=== PATIENT | male | born 1990 | race Caucasian/White ===

== ENCOUNTER 2022-07-19 13:46 | Observation (INO) ==
[2022-07-19] MEDS ORDERED: MORPHINE 2 MG/1 ML SYRINGE IV STA (13:59)
[2022-07-19] MEDS ORDERED: ONDANSETRON 4 MG/2 ML VIAL IV STA (13:59)
[2022-07-19 14:04] LABS: Basophils # 0.1 10*3/uL (0.0-0.2); Basophils % 0.3 % (0.0-0.8); Eosinophils % 0.1 % (0.00-10.9); Hemoglobin 15.8 GM/DL (14.0-18.0); Immature Granulocytes % 0.5 %; Immature Granulocytes Absolute 0.07 #; Lymphocytes # 1.5 10*3/uL (1.4-4.0); Lymphocytes % 9.7 % (21.2-54.2); Mean Corpuscular HGB Conc 34.3 GM/DL (32-36); Mean Platelet Volume 9.8 FL (9.6-12.0); Monocytes # 0.8 10*3/uL (0.11-0.8); Monocytes % 4.9 % (1.7-12.7); Neutrophils % 84.5 % (38.7-73.9); Platelet Count 313 T/CUMM (130-400); Red Blood Count 5.29 MC/CUMM (3.8-5.5); White Blood Count 15.5 T/CUMM (4-12)
[2022-07-19 14:32] LABS: Albumin 4.9 G/DL (3.4-5.0); Bilirubin,Total 1.3 MG/DL (0.20-1.00); Calcium 9.7 MG/DL (8.5-10.1); Potassium 4.3 MMOL/L (3.5-5.1); Total Protein 8.1 G/DL (6.4-8.2)
[2022-07-19] MEDS ORDERED: ceFAZolin 2,000 MG in SODIUM CHLORIDE 0.9% 100 ML IV ONE (14:33)
[2022-07-19] MEDS ORDERED: fentaNYL 100 MCG/2 ML VIAL ONE (14:36)
[2022-07-19] MEDS ORDERED: ceFAZolin 2,000 MG/50 ML DUPLEX IV ONE (14:39)
[2022-07-19] MEDS ORDERED: BACITRACIN OINT 0.9 GM PACK TOP ONE (14:42)
[2022-07-19] MEDS ORDERED: PHENYLEPHRINE 1 MG/10 ML SYRINGE IV ONE (15:30)
[2022-07-19] MEDS ORDERED: SUCCINYLCHOLINE 200 MG/10 ML VIAL ONE (15:31)
[2022-07-19] MEDS ORDERED: LIDOCAINE 2% 5 ML VIAL ONE (15:31)
[2022-07-19] MEDS ORDERED: ROCURONIUM 50 MG/5 ML VIAL IV ONE (15:31)
[2022-07-19] MEDS ORDERED: SEVOFLURANE 1 UNIT/15 MINUTE INH ONE (15:31)
[2022-07-19] MEDS ORDERED: propofoL 200 MG/20 ML VIAL IV ONE ×2 (15:31→16:21)
[2022-07-19] MEDS ORDERED: ROPIVACAINE 0.5% 30 ML VIAL ONE (15:39)
[2022-07-19] MEDS ORDERED: GLYCOPYRROLATE 0.4 MG/2 ML VIAL ONE (15:40)
[2022-07-19] MEDS ORDERED: MEPERIDINE 25 MG/1 ML VIAL IV PRN ×2 (16:06→17:04)
[2022-07-19] MEDS ORDERED: ONDANSETRON 4 MG/2 ML VIAL IV PRN ×3 (16:06→17:04)
[2022-07-19] MEDS ORDERED: HYDROmorphone 1 MG/1 ML SYRINGE IV PRN ×2 (16:06→16:38)
[2022-07-19] MEDS ORDERED: LACTATED RINGERS 1,000 ML IV ONE (16:14)
[2022-07-19] MEDS ORDERED: oxyCODONE/ACETAMINOPHEN 5-325 MG TABLET PO PRN (16:38)
[2022-07-19] MEDS ORDERED: PROMETHAZINE 25 MG/1 ML VIAL IM PRN (16:38)
[2022-07-19] MEDS ORDERED: ACETAMINOPHEN 325 MG TABLET PO SCH (17:00)
[2022-07-19] MEDS: HYDROmorphone 1 MG/1 ML SYRINGE IV PRN ×4 (17:03→17:53)
[2022-07-19] MEDS ORDERED: HYDROmorphone 1 MG/1 ML SYRINGE ONE (17:43)
[2022-07-19 18:12] VITALS: BP 106/69
[2022-07-19] MEDS ORDERED: oxyCODONE/ACETAMINOPHEN 5-325 MG TABLET PO ONE (22:00)
[2022-07-20] MEDS ORDERED: LEVOFLOXACIN 500 MG TABLET PO SCH (09:00)
== END 2022-07-20 04:40 | disposition home or self-care (01) ==
LOC: N.2W → N.ED 13:46 → EDSTATUS 17:33
PROVIDERS: ADMIT Emergency Medicine; ATTEND Emergency Medicine